=== PATIENT | female | born 1940 | race Caucasian/White ===

== ENCOUNTER 2016-04-18 16:53 | Emergency (ER) | payer OTHER ==
[2016-04-18 17:05] VITALS: TEMP 97.5; O2SAT 94
[2016-04-18] MEDS ORDERED: NS 1,000 ML IV ONE (17:46)
[2016-04-18] MEDS ORDERED: ONDANSETRON 4 MG/2 ML VIAL IVP ONE (17:46)
[2016-04-18] MEDS ORDERED: METOCLOPRAMIDE 10 MG/2 ML VIAL IVP ONE (17:46)
--- NOTE | 2016-04-18 17:57 | EDPHY ---
H & P Time Seen by Provider: 04/18/16 17:13 HPI/ROS: CHIEF COMPLAINT: nausea HISTORY OF PRESENT ILLNESS: Patient is a 75-year-old female with a history of although metastatic lung cancer. She presented August 2015 with a right lower lobe tumor and right adrenal metastasis. 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 Patient underwent chemotherapy and stereotactic radio surgery. She developed progressive pain which was refractory. She had resection surgery by Dr. Cazares on April 02. The tumor was found to be adherent to the vena cava and liver and was unable to be removed entirely. She has had progressive weight loss and ongoing nausea. She has been unable to control her nausea with Zofran, Reglan, Benadryl. Patient presents today with worsening nausea. She has been unable to eat or drink anything for the past 2 days. She is concerned she is becoming dehydrated. She also has mild increased edema in her bilateral feet. No new shortness of breath or chest pain. No abdominal pain. No fevers or chills. No dysuria or frequency. REVIEW OF SYSTEMS: My complete review of systems is negative except as mentioned in the HPI. Past Medical/Surgical History: Includes lung cancer with metastatic disease, gastritis, peptic ulcer disease, failure to thrive, asymptomatic bacteriuria Social History: Patient lives at home. Smoking Status: Former smoker Physical Exam: Vitals noted GENERAL: No acute distress, alert. HEENT: Eyes normal to inspection, normal pharynx, no signs of dehydration. Moist mucous membranes. NECK: No thyromegaly, no lymphadenopathy, supple. RESPIRATORY: Clear to auscultation bilaterally, no rales, rhonchi or wheezing. CVS: Regular rate and rhythm, no rubs, murmurs, or gallops. ABDOMEN: Soft, nontender, nondistended, no organomegaly. Benign BACK: Normal to inspection, no CVA tenderness. SKIN: Normal color, no rash, warm, dry. No pallor. EXTREMITIES: Minimal pedal edema bilaterally. No pitting edema. No calf tenderness, no joint swelling. NEURO/PSYCH: [Alert and oriented , normal mood and affect, normal motor sensory exam. Constitutional: Initial Vital Signs Temperature (C) 36.4 C 04/18/16 16:57 Heart Rate 104 H 04/18/16 16:57 Respiratory Rate 16 04/18/16 16:57 Blood Pressure 133/80 H 04/18/16 16:57 O2 Sat (%) 94 04/18/16 16:57 O2 Delivery Mode Room Air Allergies/Adverse Reactions: TERRA Inhibitors Allergy (Verified 11/24/15 22:11) ciprofloxacin [From Cipro] Allergy (Verified 11/24/15 22:11) ciprofloxacin HCl [From Cipro] Allergy (Verified 11/24/15 22:11) codeine Allergy (Verified 03/28/16 10:14) Vomiting latex Allergy (Verified 03/22/16 10:17) meperidine HCl [From Demerol] Allergy (Verified 03/22/16 10:16) morphine Allergy (Verified 03/28/16 10:14) Vomiting NSAIDS (Non-Steroidal Anti-Inflamma Allergy (Verified 11/24/15 22:11) Home Medications: Medication Instructions Recorded Aspirin EC [Aspirin EC 81 mg (*)] 81 mg PO HS 03/19/16 Estradiol [Estradiol 1 MG (*)] 1 mg PO HS 03/19/16 Pantoprazole Sodium [Protonix 40mg 40 mg PO BID 03/19/16 (*)] Prochlorperazine Maleate 10 mg PO Q6H PRN 03/19/16 [Compazine 10mg (*)] Ranitidine HCl [Zantac] 150 mg PO BID 03/19/16 ALPRAZolam [Xanax 0.5 MG (*)] 0.5 mg PO HS #0 tab 04/05/16 Ondansetron Odt [Zofran Odt 4 mg 4 mg PO Q4HRS PRN #0 tab 04/05/16 (*)] LORazepam [Ativan (*)] 1 mg PO DAILY PRN 04/10/16 Metoclopramide [Reglan 10 mg tab 10 mg PO QID PRN #20 tab 04/12/16 (*)] Polyethylene Glycol 3350 [Miralax 17 gm PO DAILY PRN #0 pkt 04/12/16 17 gm (*)] Sennosides/Docusate Sodium 1 - 2 tab PO BID #0 tab 04/12/16 [Senokot-S] Sucralfate [Carafate 1 GM (*)] 1 gm PO BID #30 tab 04/12/16 fentaNYL [Duragesic 25 MCG Patch 25 mcg TD Q72H #5 patch 04/12/16 (*)] morphINE [Roxanol 10 mg/0.5 ml 5 - 10 mg PO Q2HRS PRN #15 ml 04/12/16 oral soln (*)] Medical Decision Making ED Course/Re-evaluation: In the emergency department I discussed possible etiologies with the patient and her daughter. I reviewed the patient's previous studies. Patient had an IV placed. She was given a L of normal saline for hydration. Laboratory studies were ordered. Patient was given Zofran 4 mg IV and Reglan 10 mg IV for nausea. I reviewed the patient's laboratory studies. Patient had minimally elevated white count. Mildly anemic. The patient's BNP is in the 600. On recheck the patient was doing well. She states her nausea is improved. Her abdomen is soft, nontender nondistended. 2000: Patient is up in wants to be discharged home. I reviewed her laboratory studies. I answered all her questions. She is given warnings prior to leaving. Differential Diagnosis: My differential includes but is not limited to metastatic lung disease, dehydration, electrolyte abnormality, sugar abnormality, intractable nausea - Data Points Laboratory Results: Laboratory Results 04/18/16 18:15 04/18/16 18:15 04/18/16 18:15 WBC 11.47 H 10^3/uL (3.80-9.50) RBC 4.04 L 10^6/uL (4.18-5.33) Hgb 11.1 L g/dL (12.6-16.3) Hct 33.7 L % (38.0-47.0) MCV 83.4 fL (81.5-99.8) MCH 27.5 L pg (27.9-34.1) MCHC 32.9 g/dL (32.4-36.7) RDW 17.0 H % (11.5-15.2) Plt Count 352 10^3/uL (150-400) MPV 9.5 fL (8.7-11.7) Neut % (Auto) 79.9 H % (39.3-74.2) Lymph % (Auto) 11.0 L % (15.0-45.0) Richardson % (Auto) 8.0 % (4.5-13.0) Eos % (Auto) 0.4 L % (0.6-7.6) Baso % (Auto) 0.2 L % (0.3-1.7) Nucleat RBC Rel Count 0.0 % (0.0-0.2) Absolute Neuts (auto) 9.16 H 10^3/uL (1.70-6.50) Absolute Lymphs (auto) 1.26 10^3/uL (1.00-3.00) Absolute Monos (auto) 0.92 H 10^3/uL (0.30-0.80) Absolute Eos (auto) 0.05 10^3/uL (0.03-0.40) Absolute Basos (auto) 0.02 10^3/uL (0.02-0.10) Absolute Nucleated RBC 0.00 10^3/uL (0-0.01) Immature Gran % 0.5 % (0.0-1.1) Immature Gran # 0.06 10^3/uL (0.00-0.10) Sodium 131 L mEq/L (134-144) Potassium 4.2 mEq/L (3.5-5.2) Chloride 89 L mEq/L (97-110) Carbon Dioxide 28 mEq/l (22-31) Anion Gap 14 mEq/L (8-16) BUN 17 mg/dL (7-23) Creatinine 0.6 mg/dL (0.6-1.0) Estimated GFR > 60 Glucose 108 H mg/dL (70-100) Calcium 10.0 mg/dL (8.5-10.4) Total Bilirubin 1.0 mg/dL (0.1-1.4) Conjugated Bilirubin 0.7 H mg/dL (0.0-0.5) Unconjugated Bilirubin 0.3 mg/dL (0.0-1.1) AST 18 IU/L (14-46) ALT 34 IU/L (9-52) Alkaline Phosphatase 113 IU/L (38-126) NT-Pro-B Natriuret Pep 687 H pg/mL (0-450) Total Protein 6.4 g/dL (6.3-8.2) Albumin 3.4 L g/dL (3.5-5.0) Lipase < 10.0 L IU/L (23-300) Medications Given: Discontinued Medications Sodium Chloride (Ns) 1,000 mls @ 0 mls/hr IV ONCE ONE PRN Reason: Wide Open Stop: 04/18/16 17:47 Last Admin: 04/18/16 18:15 Dose: 1,000 mls Metoclopramide HCl (Reglan Injection) 10 mg IVP EDNOW ONE Stop: 04/18/16 17:47 Last Admin: 04/18/16 18:20 Dose: 10 mg Ondansetron HCl (Zofran) 4 mg IVP EDNOW ONE Stop: 04/18/16 17:47 Last Admin: 04/18/16 18:15 Dose: 4 mg Departure - Departure Disposition: Home, Routine, Self-Care Clinical Impression: Nausea and vomiting Qualifiers: Vomiting type: unspecified Vomiting Intractability: non-intractable Qualifier Code: (R11.2) Nausea with vomiting, unspecified Condition: Good Instructions: Acute Nausea and Vomiting (ED) Referrals: Gerald Sanon MD [Primary Care Provider] - 2-3 days, if not improved Gerald Bearden MD [Medical Doctor] - 5-7 days, call for appt.
[2016-04-18] MEDS ORDERED: morphINE 10 MG/0.5 ML UDSYR PO PRN (18:03)
[2016-04-18 18:30] LABS: % IMMATURE GRANULYOCYTES 0.5 % (0.0-1.1); ABSOLUTE IMMATURE GRANULOCYTES 0.06 10^3/uL (0.00-0.10); ADD DIFF? NO; ADD MORPH? NO; ADD SCAN? NO; ATYPICAL LYMPHOCYTE FLAG 10 (0-99); FRAGMENT RBC FLAG 0 (0-99); HEMATOCRIT 33.7 % (38.0-47.0); HEMOGLOBIN 11.1 g/dL (12.6-16.3); LEFT SHIFT FLG 0 (0-99); LIPEMIA HEMOLYSIS FLAG 80 (0-99); MEAN CELL HEMOGLOBIN 27.5 pg (27.9-34.1); MEAN CELL HEMOGLOBIN CONCENTR. 32.9 g/dL (32.4-36.7); MEAN CELL VOLUME 83.4 fL (81.5-99.8); MEAN PLATELET VOLUME 9.5 fL (8.7-11.7); PLATELET CLUMPS FLAG 0 (0-99); PLATELET COUNT 352 10^3/uL (150-400); RED BLOOD CELL COUNT 4.04 10^6/uL (4.18-5.33)
[2016-04-18 18:48] LABS: ALANINE AMINOTRANSFERASE 34 IU/L (9-52); ALBUMIN 3.4 g/dL (3.5-5.0); ALKALINE PHOSPHATASE 113 IU/L (38-126); ANION GAP 14 mEq/L (8-16); ASPARTATE AMINOTRANSFERASE 18 IU/L (14-46); BILIRUBIN-CONJUGATED 0.7 mg/dL (0.0-0.5); BILIRUBIN-UNCONJUGATED 0.3 mg/dL (0.0-1.1); CARBON DIOXIDE 28 mEq/l (22-31); CHLORIDE 89 mEq/L (97-110); CREATININE 0.6 mg/dL (0.6-1.0); GLOMERULAR FILTRATION RATE > 60; GLUCOSE 108 mg/dL (70-100); POTASSIUM 4.2 mEq/L (3.5-5.2); SODIUM 131 mEq/L (134-144); TOTAL PROTEIN 6.4 g/dL (6.3-8.2)
[2016-04-18 20:15] VITALS: BP 156/90; PULSE 95; RESP 18
== END 2016-04-18 20:25 | disposition home or self-care (01) ==
DX: R11.2 Nausea with vomiting, unspecified (principal); Z85.118 Personal history of other malignant neoplasm of bronchus and lung; Z87.891 Personal history of nicotine dependence; Z91.040 Latex allergy status; Z79.82 Long term (current) use of aspirin
CPT/HCPCS: 96361; 96374; 96375; 99284; J2405; J2765

== ENCOUNTER 2016-04-27 15:49 | Emergency (ER) | payer OTHER ==
[2016-04-27] MEDS ORDERED: ONDANSETRON 4 MG/2 ML VIAL IVP ONE (16:25)
[2016-04-27] MEDS ORDERED: NS 1,000 ML IV ONE (16:39)
--- NOTE | 2016-04-27 16:43 | EDPHY ---
H & P Time Seen by Provider: 04/27/16 16:38 HPI/ROS: CHIEF COMPLAINT: Here for IV fluids. HISTORY OF PRESENT ILLNESS: The patient is a 75-year-old female with a history of lung and adrenal cancer presenting to receive IV fluids for dehydration. She gets dehydrated frequently and obtains IV fluids from Dr. Bearden at the cancer center but is unable to visit them on the weekends. She is usually unable to eat or drink due to severe nausea. She denies abdominal pain, fever, or other complaints REVIEW OF SYSTEMS: A complete 10-point review of systems was performed and is negative except for those items mentioned in the HPI. Past Medical/Surgical History: Lung cancer, adrenal cancer. Social History: Here with , nonsmoker. Smoking Status: Former smoker Physical Exam: General Appearance: Alert, no distress Eyes: Pupils equal and round, no conjunctival pallor or injection ENT, Mouth: Mucous membranes moist Neck: Normal inspection Respiratory: Lungs are clear to auscultation Cardiovascular: Regular rate and rhythm Gastrointestinal: Abdomen is soft and non- tender Neurological: A&O, nonfocal, normal gait Skin: Warm and dry, no rash Extremities: Nontender, no pedal edema Psychiatric: Mood and affect normal Constitutional: Initial Vital Signs Temperature (C) 36.8 C 04/27/16 16:00 Heart Rate 109 H 04/27/16 16:00 Respiratory Rate 18 04/27/16 16:00 Blood Pressure 123/87 H 04/27/16 16:00 O2 Sat (%) 90 L 04/27/16 16:00 O2 Delivery Mode Room Air Allergies/Adverse Reactions: TERRA Inhibitors Allergy (Verified 04/27/16 15:58) ciprofloxacin [From Cipro] Allergy (Verified 04/27/16 15:58) ciprofloxacin HCl [From Cipro] Allergy (Verified 04/27/16 15:58) codeine Allergy (Verified 04/27/16 15:58) Vomiting latex Allergy (Verified 04/27/16 15:58) meperidine HCl [From Demerol] Allergy (Verified 04/27/16 15:58) morphine Allergy (Verified 04/27/16 15:58) Vomiting NSAIDS (Non-Steroidal Anti-Inflamma Allergy (Verified 04/27/16 15:58) Home Medications: Medication Instructions Recorded Aspirin EC [Aspirin EC 81 mg (*)] 81 mg PO HS 03/19/16 Estradiol [Estradiol 1 MG (*)] 1 mg PO HS 03/19/16 Pantoprazole Sodium [Protonix 40mg 40 mg PO BID 03/19/16 (*)] Prochlorperazine Maleate 10 mg PO Q6H PRN 03/19/16 [Compazine 10mg (*)] Ranitidine HCl [Zantac] 150 mg PO BID 03/19/16 ALPRAZolam [Xanax 0.5 MG (*)] 0.5 mg PO HS #0 tab 04/05/16 Ondansetron Odt [Zofran Odt 4 mg 4 mg PO Q4HRS PRN #0 tab 04/05/16 (*)] LORazepam [Ativan (*)] 1 mg PO DAILY PRN 04/10/16 Metoclopramide [Reglan 10 mg tab 10 mg PO QID PRN #20 tab 04/12/16 (*)] Polyethylene Glycol 3350 [Miralax 17 gm PO DAILY PRN #0 pkt 04/12/16 17 gm (*)] Sennosides/Docusate Sodium 1 - 2 tab PO BID #0 tab 04/12/16 [Senokot-S] Sucralfate [Carafate 1 GM (*)] 1 gm PO BID #30 tab 04/12/16 fentaNYL [Duragesic 25 MCG Patch 25 mcg TD Q72H #5 patch 04/12/16 (*)] morphINE [Roxanol 10 mg/0.5 ml 5 - 10 mg PO Q2HRS PRN #15 ml 04/12/16 oral soln (*)] Medical Decision Making ED Course/Re-evaluation: An IV was established. 4mg IV Zofran administered for nausea, 1L IV saline for hydration. 1740: Reassessed patient. She is feeling better. She has urinated and is ready to go home. - Data Points Medications Given: Discontinued Medications Sodium Chloride (Ns) 1,000 mls @ 0 mls/hr IV ONCE ONE PRN Reason: Wide Open Stop: 04/27/16 16:40 Last Admin: 04/27/16 16:42 Dose: 1,000 mls Ondansetron HCl (Zofran) 4 mg IVP EDNOW ONE Stop: 04/27/16 16:26 Last Admin: 04/27/16 16:27 Dose: 4 mg Departure - Departure Disposition: Home, Routine, Self-Care Clinical Impression: Dehydration Condition: Good Instructions: Dehydration (ED) Additional Instructions: Drink fluids as tolerable. Follow up with your primary care provider or oncologist next week for reevaluation. Return to the emergency department tomorrow if you need more IV fluids. Referrals: Gerald Sanon MD [Primary Care Provider] - As per Instructions Report Scribed for: Sonia Streeter Report Scribed by: Jacob Gonzalez Date of Report: 04/27/16 Time of Report: 16:41 Physician Review and Approval Statement: 04/27/16 16:44 Portions of this note were transcribed by a medical billing manager. I personally performed a history, physical exam, medical decision making, and confirmed accuracy of information the transcribed note.
[2016-04-27 18:11] VITALS: BP 127/72; PULSE 92; RESP 16; TEMP 96.8; O2SAT 98
== END 2016-04-27 18:11 | disposition home or self-care (01) ==
DX: E86.0 Dehydration (principal); Z79.82 Long term (current) use of aspirin; Z85.118 Personal history of other malignant neoplasm of bronchus and lung; Z85.858 Personal history of malignant neoplasm of other endocrine glands; Z87.891 Personal history of nicotine dependence; Z91.040 Latex allergy status
CPT/HCPCS: 96361; 96374; 99284; J2405

== ENCOUNTER 2016-04-28 15:13 | Emergency (ER) | payer OTHER ==
[2016-04-28] MEDS ORDERED: NS 1,000 ML IV ONE (16:23)
[2016-04-28] MEDS ORDERED: ONDANSETRON 4 MG/2 ML VIAL IVP ONE (16:24)
--- NOTE | 2016-04-28 16:54 | EDPHY ---
H & P HPI/ROS: CHIEF COMPLAINT: Dehydration. 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 Due to severe nausea from the cancer she is unable tolerate po's well and gets easily dehydrated. Usually she is able to receive fluids at Dr. Bearden's office but due to it being the weekend she has to present here. She was here yesterday for the same reason. Her reports she did well overnight. She was able to eat soft foods including ice cream and mashed potatoes and did not need overnight Morphine. Today she is mildly nauseated. She denies abdominal pain, fever, vomiting, or other complaints. REVIEW OF SYSTEMS: A complete 10-point review of systems was performed and is negative except for those items mentioned in the HPI. Past Medical/Surgical History: Lung cancer with metastases to adrenal gland. Social History: Here with . Smoking Status: Former smoker Physical Exam: General Appearance: Cachectic. Alert, no distress Eyes: Pupils equal and round, no conjunctival pallor or injection ENT, Mouth: Mucous membranes moist Neck: Normal inspection Respiratory: Lungs are clear to auscultation Cardiovascular: Regular rate and rhythm Gastrointestinal: Abdomen is soft and non- tender Neurological: A&O, nonfocal, normal gait Skin: Warm and dry, no rash Extremities: Nontender, no pedal edema Psychiatric: Mood and affect normal Constitutional: Initial Vital Signs Temperature (C) 36.3 C 04/28/16 15:27 Heart Rate 109 H 04/28/16 15:27 Respiratory Rate 20 04/28/16 15:27 Blood Pressure 118/74 04/28/16 15:27 O2 Sat (%) 92 04/28/16 15:27 O2 Delivery Mode Room Air Allergies/Adverse Reactions: TERRA Inhibitors Allergy (Verified 04/27/16 15:58) ciprofloxacin [From Cipro] Allergy (Verified 04/27/16 15:58) ciprofloxacin HCl [From Cipro] Allergy (Verified 04/27/16 15:58) codeine Allergy (Verified 04/27/16 15:58) Vomiting latex Allergy (Verified 04/27/16 15:58) meperidine HCl [From Demerol] Allergy (Verified 04/27/16 15:58) morphine Allergy (Verified 04/27/16 15:58) Vomiting NSAIDS (Non-Steroidal Anti-Inflamma Allergy (Verified 04/27/16 15:58) Home Medications: Medication Instructions Recorded Aspirin EC [Aspirin EC 81 mg (*)] 81 mg PO HS 03/19/16 Estradiol [Estradiol 1 MG (*)] 1 mg PO HS 03/19/16 Pantoprazole Sodium [Protonix 40mg 40 mg PO BID 03/19/16 (*)] Prochlorperazine Maleate 10 mg PO Q6H PRN 03/19/16 [Compazine 10mg (*)] Ranitidine HCl [Zantac] 150 mg PO BID 03/19/16 ALPRAZolam [Xanax 0.5 MG (*)] 0.5 mg PO HS #0 tab 04/05/16 Ondansetron Odt [Zofran Odt 4 mg 4 mg PO Q4HRS PRN #0 tab 04/05/16 (*)] LORazepam [Ativan (*)] 1 mg PO DAILY PRN 04/10/16 Metoclopramide [Reglan 10 mg tab 10 mg PO QID PRN #20 tab 04/12/16 (*)] Polyethylene Glycol 3350 [Miralax 17 gm PO DAILY PRN #0 pkt 04/12/16 17 gm (*)] Sennosides/Docusate Sodium 1 - 2 tab PO BID #0 tab 04/12/16 [Senokot-S] Sucralfate [Carafate 1 GM (*)] 1 gm PO BID #30 tab 04/12/16 fentaNYL [Duragesic 25 MCG Patch 25 mcg TD Q72H #5 patch 04/12/16 (*)] morphINE [Roxanol 10 mg/0.5 ml 5 - 10 mg PO Q2HRS PRN #15 ml 04/12/16 oral soln (*)] Medical Decision Making ED Course/Re-evaluation: An IV was established. 1L IV saline administered for hydration, 4mg IV Zofran for nausea. Declines lab work. Ransom better after IVF, ready to go home. - Data Points Medications Given: Discontinued Medications Sodium Chloride (Ns) 1,000 mls @ 0 mls/hr IV ONCE ONE PRN Reason: Wide Open Stop: 04/28/16 16:24 Last Admin: 04/28/16 16:23 Dose: 1,000 mls Ondansetron HCl (Zofran) 4 mg IVP EDNOW ONE Stop: 04/28/16 16:25 Last Admin: 04/28/16 16:25 Dose: 4 mg Departure - Departure Disposition: Home, Routine, Self-Care Clinical Impression: Dehydration Condition: Good Instructions: Dehydration (ED) Additional Instructions: Drink fluids as tolerable. Follow up with your primary care provider or return to the emergency department for IV fluids when dehydrated. Return to the emergency department if you experience any serious worsening of condition. Referrals: Gerald Sanon MD [Primary Care Provider] - As per Instructions Report Scribed for: Sonia Streeter Report Scribed by: Jacob Gonzalez Date of Report: 04/28/16 Time of Report: 16:54 Physician Review and Approval Statement: 04/28/16 16:54 Portions of this note were transcribed by a medical billing service. I personally performed a history, physical exam, medical decision making, and confirmed accuracy of information the transcribed note.
[2016-04-28 19:15] VITALS: BP 165/90; PULSE 92; RESP 14; TEMP 97.7; O2SAT 96
== END 2016-04-28 19:15 | disposition home or self-care (01) ==
DX: E86.0 Dehydration (principal); Z79.82 Long term (current) use of aspirin; Z85.118 Personal history of other malignant neoplasm of bronchus and lung; Z87.891 Personal history of nicotine dependence; Z91.040 Latex allergy status
CPT/HCPCS: 96361; 96374; 99284; J2405